=== PATIENT | female | born 1960 | race Caucasian/White ===

== ENCOUNTER → 2016-07-22 | Outpatient (CLI) | payer BC ==
[~2016-07-22] MED LIST: ESTRACE 1MG1 MG/TAB PO; LORTAB 7.5/5001 TAB PO; MULTIPLE VITAMI1 CAP PO
== END ==
LOC: MC.RAD 11:16
DX: Z12.31 Encounter for screening mammogram for malignant neoplasm of breast (principal)

== ENCOUNTER → 2017-08-09 | Outpatient (CLI) | payer BC | LOC: MC.RAD 06:53 | DX: Z12.31 Encounter for screening mammogram for malignant neoplasm of breast (principal) ==

== ENCOUNTER → 2018-08-14 | Outpatient (CLI) | payer BC | LOC: MC.RAD 09:14 | DX: Z12.31 Encounter for screening mammogram for malignant neoplasm of breast (principal) ==

== ENCOUNTER → 2019-09-17 | Outpatient (CLI) | payer BC | LOC: MC.RAD 07:00 | DX: Z12.31 Encounter for screening mammogram for malignant neoplasm of breast (principal) ==

== ENCOUNTER → 2021-01-16 | Outpatient (CLI) | payer BC | LOC: MC.RAD 01-13 07:15 | DX: Z12.31 Encounter for screening mammogram for malignant neoplasm of breast (principal); R92.0 Mammographic microcalcification found on diagnostic imaging of breast ==

== ENCOUNTER → 2021-01-30 | Outpatient (CLI) | payer BC | LOC: MC.RAD 10:41 | DX: R92.1 Mammographic calcification found on diagnostic imaging of breast (principal) ==

== ENCOUNTER → 2023-04-18 | Outpatient (CLI) | payer BC ==
[~2023-04-18] MED LIST changes: +DIUREX WATER PI1 TAB; +EFFEXOR 75M75 MG/TAB PO; +ELESTRIN0.06% TOP; +NORCO 325 MG-51 TAB PO; +VALTREX 50500 MG/TAB PO
== END ==
LOC: MC.RAD 07:49
DX: R92.0 Mammographic microcalcification found on diagnostic imaging of breast (principal)

== ENCOUNTER → 2023-04-20 | Outpatient (CLI) | payer BC | LOC: MC.RAD 09:51 | DX: R92.8 Other abnormal and inconclusive findings on diagnostic imaging of breast (principal) ==

== ENCOUNTER 2023-05-06 11:45 | Day surgery (SDC) | payer BC ==
[~2023-05-06] VITALS: Ht 170.2 cm; Wt 66.9 kg
[2023-05-06] VITALS (7 sets, daily range): BP systolic 135–156; BP diastolic 69–81; PULSE 60–69; TEMP 97.2–97.4
[~2023-05-06 11:45] MED LIST changes: -DIUREX WATER PI1 TAB; -EFFEXOR 75M75 MG/TAB PO; -ELESTRIN0.06% TOP; +Famotidine 20 MG TAB PO SCH; +LR 1,000 ML IV ONE; +Meclizine 25 MG TAB PO SCH; -NORCO 325 MG-51 TAB PO; +Scopolamine 1 MG Delivered 3-Day PATCH TD SCH; -VALTREX 50500 MG/TAB PO
[2023-05-06] MEDS ORDERED: VALTREX 50500 MG/TAB PO (12:28)
[2023-05-06] MEDS ORDERED: EFFEXOR 75M75 MG/TAB PO (12:28)
[2023-05-06] MEDS ORDERED: DIUREX WATER PI1 TAB (12:29)
[2023-05-06] MEDS ORDERED: ELESTRIN0.06% TOP (12:30)
[2023-05-06] MEDS ORDERED: NORCO 325 MG-51 TAB PO (14:59)
[2023-05-06] MEDS ORDERED: fentaNYL 50 MCG/ML 2 ML VIAL ONE (15:13)
[2023-05-06] MEDS ORDERED: dexAMETHasone 10 MG/ML VIAL ONE (15:13)
[2023-05-06] MEDS ORDERED: Lidocaine PF 2% (20 MG/ML) 5 ML VIAL ONE (15:13)
[2023-05-06] MEDS ORDERED: Ondansetron 4 MG/2 ML VIAL ONE (15:13)
[2023-05-06] MEDS ORDERED: Midazolam 2 MG/2 ML VIAL ONE (15:13)
[2023-05-06] MEDS ORDERED: Lidocaine PF 2% (20 MG/ML) 5 ML VIAL SQ ONE (15:39)
[2023-05-06] MEDS ORDERED: Glycopyrrolate 0.2 MG/ML 1 ML VIAL ONE (15:43)
[2023-05-06] MEDS ORDERED: hydrALAZINE 20 MG/ML 1 ML VIAL IV PRN (16:00)
[2023-05-06] MEDS ORDERED: Ondansetron 4 MG/2 ML VIAL IV PRN (16:00)
[2023-05-06] MEDS ORDERED: HYDROmorphone 2 MG/1 ML VIAL IV PRN (16:00)
[2023-05-06] MEDS ORDERED: Ketorolac 30 MG/ML VIAL IV PRN (16:00)
[2023-05-06] MEDS ORDERED: fentaNYL 50 MCG/ML 2 ML VIAL IV PRN (16:00)
[2023-05-06] MEDS ORDERED: Meperidine 50 MG/ML 1 ML VIAL IV PRN (16:00)
[2023-05-06] MEDS ORDERED: droPERidol 2.5 MG/ML 2 ML VIAL IV PRN (16:00)
--- NOTE | 2023-05-06 17:00 | NUR ---
PATIENT RETURNED TO ROOM 8 VIA CART, ALERT AND ORIENTED X3. DENIES PAIN, NAUSEA AND SHORTNESS OF BREATH. BREATHING REGULAR AND UNLABORED ON ROOM AIR. SKIN WARM AND DRY. NURSE HANDOFF COMPLETED IN ROOM. SEE CHART FOR VITAL SIGNS. VISIBLE ADAPTIC TAPE DRESSING IN PLACE TO RIGHT CHEST. DRESSING IS CLEAN, DRY AND INTACT. SURROUNDING SKIN IS CLEAN AND DRY WITH NORMAL SKIN TONE COLOR. CALL LIGHT IN REACH. PATIENT HAD COFFEE, WATER, ICE CREAM AND SALTINES. FOOD AND DRINK TOLERATED WELL, NO DYSPHAGIA. , KO[facility], PRESENT IN ROOM.
--- NOTE | 2023-05-06 17:46 | NUR ---
1737: DISCHARGE TEACHING COMPLETED WITH PRINTED EDUCATION AND INSTRUCTIONS SENT HOME WITH PATIENT AND SPOUSE, KOLE. PATIENT PROVIDED WITH [facility]ICE NUMBER TO TRY AND RE-SCHEDULE FOLLOW UP APPOINTMENT TO BE SEEN IN [facility]. BOTH VERBALIZED UNDERSTANDING. 1740: PATIENT DENIES PAIN, NAUSEA AND SHORTNESS OF BREATH. RIGHT CHEST DRESSING CLEAN, DRY AND INTACT. IV REMOVED. GAUZE AND COBAN PLACED OVER SITE. 1746: PATIENT CHANGED INTO PERSONAL CLOTHING AND DISCHARGED HOME WITH [facility].
== END 2023-05-06 17:46 | disposition home or self-care (01) ==
LOC: SDCO 11:45
DX: D05.11 Intraductal carcinoma in situ of right breast (principal); Z17.0 Estrogen receptor positive status [ER+]; Z79.890 Hormone replacement therapy
CPT/HCPCS: A4648; J0690; J1100; J1170; J1885; J2250; J2405; J2704; J3010; J7120